=== PATIENT | male | born 1975 | race Asian ===

== ENCOUNTER 2024-01-08 21:04 | Emergency (ER) | payer MEDICAID ==
[~2024-01-08] VITALS: Ht 162.6 cm; Wt 77.3 kg
[2024-01-08 21:24] VITALS: TEMP 99.7
[2024-01-08 22:14] LABS: BASOPHILS # (AUTO) 0.1 X10'3 (0-0.2); BASOPHILS % (AUTO) 0.7 % (0-1); EOSINOPHILS # (AUTO) 0.1 X10'3 (0-0.9); HEMATOCRIT 45.3 % (42.0-52.0); HEMOGLOBIN 14.5 g/dl (14.0-17.9); LYMPHOCYTES # (AUTO) 1.4 X10'3 (1.1-4.8); LYMPHOCYTES % (AUTO) 16.4 % (21-51); MEAN CORPUSCULAR HEMOGLOBIN 22.3 PG (27.0-31.0); MEAN CORPUSCULAR VOLUME 69.8 FL (78-98); MEAN PLATELET VOLUME 7.6 FL (7.4-10.4); MONOCYTES # (AUTO) 0.4 X10'3 (0-0.9); NEUTROPHILS # (AUTO) 6.8 X10'3 (1.8-7.7); NEUTROPHILS % (AUTO) 76.9 % (42-75); PLATELET COUNT 237 X10'3 (140-440); RED BLOOD COUNT 6.48 X10'6 (4.70-6.10); RED CELL DISTRIBUTION WIDTH 14.8 % (11.5-14.5); WHITE BLOOD COUNT 8.8 X10'3 (4.5-11.0)
[2024-01-08 22:34] LABS: MICROCYTOSIS 2+; PLATELET ESTIMATE NORMAL
[2024-01-08 22:41] LABS: HYPOCHROMASIA 1+
[2024-01-08 22:47] LABS: ALBUMIN 3.8 G/DL (3.4-5.0); ANION GAP 11 (8-16); BLOOD UREA NITROGEN 9 MG/DL (7-18); BUN/CREATININE RATIO 9.8 (10.0-20.0); CALCIUM 8.4 MG/DL (8.5-10.1); CHLORIDE 106 MMOL/L (99-107); CREATININE 0.92 MG/DL (0.60-1.10); GLUCOSE 146 MG/DL (70-104); POTASSIUM 3.6 MMOL/L (3.5-5.1); PRO BRAIN NATRIURETIC PEPTIDE 91 PG/ML (0-125); SODIUM 141 MMOL/L (135-145); TOTAL CARBON DIOXIDE 23.6 MMOL/L (24-32); eCRCL 84 ML/MIN; eGFR 89 ML/MIN
[2024-01-09] MEDS: cloNIDine 0.1 mg tablet PO ONE ×2 (00:41→01:27)
[2024-01-09] MEDS: LORazepam 1 MG tablet PO ONE (00:41)
[2024-01-09] MEDS ORDERED: MECL-302 PO (03:17)
[2024-01-09] MEDS ORDERED: LORA-268 PO (03:17)
[2024-01-09 03:33] VITALS: BP 121/88; PULSE 84; RESP 14; O2SAT 96
== END 2024-01-09 03:34 | disposition home or self-care (01) ==
LOC: ER 21:05
DX: I16.0 Hypertensive urgency (principal); I10 Essential (primary) hypertension
CPT/HCPCS: 36415; 70450; 71045; 80048; 83880; 84484; 85008; 85025; 93005; 99285